=== PATIENT | male | born 1980 | race Caucasian/White ===

== ENCOUNTER 2016-10-26 19:14 | Emergency (ER) | payer SELFPAY ==
[~2016-10-26] VITALS: Ht 180.3 cm; Wt 80.0 kg
[~2016-10-26 19:14] MED LIST: BENT20TA PO; DICL75 PO; MMW SSP; PENI500T PO; ZOFR4TAB3 PO
[2016-10-26 19:17] VITALS: BP 130/85; PULSE 87; RESP 16; TEMP 98.2; O2SAT 98
--- NOTE | 2016-10-26 19:25 | PD ---
HPI Chief Complaint: Respiratory Symptoms Time Seen by Provider: 19:24 Travel History International Travel<30 days: No Contact w/Intl Traveler<30days: No Traveled to known affect area: No History of Present Illness HPI 36-year-old male presents to emergency Department with 3 day history of worsening shortness of breath and pleuritic chest pain in the left anterior lower thoracic region. 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 Patient states she's had increasing pleuritic pain and fever for the past 3 days. Patient denies headache, sore throat, ear pain, or abdominal complaints. Patient has no medications to treat his asthma. Patient states the pain is a 6/10 and worse with inspiration or cough. He has no known drug allergies. PFSH Past Medical History Asthma: Yes Respiratory: Yes (ASTHMA/L SIDE LOBECTOMY) Past Surgical History Thoracic Surgery: Yes (LT LOBECTOMY) Social History Alcohol Use: Yes (OCC) Tobacco Use: Yes (/2 PPD) Substance Use: No Allergies-Medications (Allergen,Severity, Reaction): Coded Allergies: No Known Allergies (Unverified , 10/26/16) Reported Meds & Prescriptions Reported Meds & Active Scripts Active Reported Olanzapine 5 Mg Tab 5 Mg PO HS Review of Systems General / Constitutional: Positive: Fever, Chills Eyes: No: Visual changes HENT: No: Headaches Cardiovascular: No: Chest Pain or Discomfort Respiratory: Positive: Cough, Shortness of Breath, Wheezing, Pleuritic Pain, No: Sneezing, Orthopnea, Hemoptysis Gastrointestinal: No: Nausea, Vomiting, Diarrhea, Abdominal Pain Genitourinary: No: Dysuria Musculoskeletal: No: Pain Skin: No Rash Neurologic: No: Weakness Psychiatric: No: Depression Endocrine: No: Polydipsia Hematologic/Lymphatic: No: Easy Bruising Physical Exam Narrative GENERAL: Patient appears in moderate distress SKIN: Warm and dry. Normal color. Normal turgor. HEAD: Atraumatic. Normocephalic. EYES: Pupils equal and round. No scleral icterus. No injection or drainage. ENT: No nasal bleeding or discharge. Mucous membranes pink and moist. TMs are clear bilaterally pharynx is normal. Airway is patent. NECK: Trachea midline. No JVD. Neck is supple and nontender. CARDIOVASCULAR: Regular rate and rhythm. No murmurs gallops or rubs. No crackles appreciated. RESPIRATORY: No accessory muscle use. No significant wheezing appreciated. The patient is unable to take deep breaths. Breath sounds equal bilaterally. GASTROINTESTINAL: Abdomen soft, non-tender, nondistended. Hepatic and splenic margins not palpable. MUSCULOSKELETAL: Extremities without clubbing, cyanosis, or edema. No obvious deformities. NEUROLOGICAL: Awake and alert. No obvious cranial nerve deficits. Motor grossly within normal limits. Five out of 5 muscle strength in the arms and legs. Normal speech. PSYCHIATRIC: Appropriate mood and affect; insight and judgment normal. Data Data Last Documented VS Vital Signs Date Time Temp Pulse Resp B/P Pulse Ox O2 Delivery O2 Flow Rate FiO2 10/26/16 20:00 85 18 96 Room Air 10/26/16: 98.2 130/85 Orders Complete Blood Count With Diff (10/26/16 19:29) Comprehensive Metabolic Panel (10/26/16:29) Act Partial Throm Time (Ptt) (10/26/16:) Prothrombin Time / Inr (Pt) (10/26/16:29) Magnesium (Mg) (10/26/16 19:29) Influenzae A/B Antigen (10/26/16 19:29) Iv Access Insert/Monitor (10/26/16:29) Electrocardiogram (10/26/16:29) Ecg Monitoring (10/26/16:29) Oximetry (10/26/16:29) Oxygen Administration (10/26/16 19:29) Chest, Pa & Lat (10/26/16 19:29) Sodium Chloride 0.9% Flush (Ns Flush) (10/26/16 19:30) Methylprednisolone So Succ Inj (Solumedr (10/26/16 19:30) Albuterol-Ipratropium Neb (Duoneb Neb) (10/26/16 19:30) Ckmb (Isoenzyme) Profile (10/26/16 19:29) Troponin I (10/26/16:29) Morphine Inj (Morphine Inj) (10/26/16 19:30) Sodium Chlorid 0.9% 500 Ml Inj (Ns 500 M (10/26/16 19:30) CKMB (10/26/16 20:10) CKMB% (10/26/16 20:10) Azithromycin (Zithromax) (10/26/16 21:15) Labs Laboratory Tests Test 10/26/16 20:10 White Blood Count 13.3 TH/MM3 Red Blood Count 4.80 MIL/MM3 Hemoglobin 14.3 GM/DL Hematocrit 42.9 % Mean Corpuscular Volume 89.3 FL Mean Corpuscular Hemoglobin 29.8 PG Mean Corpuscular Hemoglobin 33.3 % Concent Red Cell Distribution Width 14.6 % Platelet Count 303 TH/MM3 Mean Platelet Volume 7.8 FL Neutrophils (%) (Auto) 47.1 % Lymphocytes (%) (Auto) 37.9 % Monocytes (%) (Auto) 12.1 % Eosinophils (%) (Auto) 2.0 % Basophils (%) (Auto) 0.9 % Neutrophils # (Auto) 6.3 TH/MM3 Lymphocytes # (Auto) 5.1 TH/MM3 Monocytes # (Auto) 1.6 TH/MM3 Eosinophils # (Auto) 0.3 TH/MM3 Basophils # (Auto) 0.1 TH/MM3 CBC Comment DIFF FINAL Differential Comment Prothrombin Time 10.4 SEC Prothromb Time International 0.9 RATIO Ratio Activated Partial 23.7 SEC Thromboplast Time Sodium Level 141 MEQ/L Potassium Level 4.2 MEQ/L Chloride Level 109 MEQ/L Carbon Dioxide Level 25.1 MEQ/L Anion Gap 7 MEQ/L Blood Urea Nitrogen 22 MG/DL Creatinine 0.82 MG/DL Estimat Glomerular Filtration 105 ML/MIN Rate Random Glucose 86 MG/DL Calcium Level 8.5 MG/DL Magnesium Level 2.2 MG/DL Total Bilirubin 0.5 MG/DL Aspartate Amino Transf 45 U/L (AST/SGOT) Alanine Aminotransferase 50 U/L (ALT/SGPT) Alkaline Phosphatase 79 U/L Total Creatine Kinase 107 U/L Troponin I LESS THAN 0.02 NG/ML Total Protein 7.2 GM/DL Albumin 3.4 GM/DL [facility] Medical Decision Making Medical Screen Exam Complete: Yes Emergency Medical Condition: Yes Differential Diagnosis Pleuritic pain. Pericarditis. Pneumonia. Asthmatic flare. Narrative Course Patient is medically stable at time of exam. EKG is ordered. Labs ordered including CBC, CMP, cardiac profile. IV access is obtained patient is given Solu-Medrol 125 mg IV, as well as morphine 4 mg IV. Patient is given a normal saline bolus of 500 mL's. DuoNeb every 15 minutes 3 is ordered. Rapid influenza is ordered. Chest x-ray PA and lateral is ordered. Patient is discussed with Dr. Watkins. Chest x-ray shows no acute process per radiologist. Rapid influenza is negative. Labs are unremarkable. EKG is unremarkable as well. Patient feels improved after the above treatment. Patient is given azithromycin 500 mg by mouth. Patient is felt stable to be discharged home. Patient is continued on azithromycin Dosepak as prescribed. Patient is given albuterol metered-dose inhaler 2 puffs every 4-6 hours when necessary wheeze or shortness of breath. Patient is given prednisone 20 mg twice a day 5 days. Patient is given a Robitussin-AC 1-2 teaspoons every 6 hours when necessary cough. 120 mL. Patient is encouraged to quit smoking as soon as possible. Patient follow-up local primary care physician as needed. Patient can return to emergency department if symptoms worsen. Diagnosis Primary Impression: Acute wheezy bronchitis Additional Impression: Asthma with acute exacerbation in adult Referrals: [facility] Patient Instructions: Acute Bronchitis (ED), General Instructions, Wheezing (ED ) Additional Instructions: Patient is given azithromycin 500 mg by mouth. Patient is felt stable to be discharged home. Patient is continued on azithromycin Dosepak as prescribed. Patient is given albuterol metered-dose inhaler 2 puffs every 4-6 hours when necessary wheeze or shortness of breath. Patient is given prednisone 20 mg twice a day 5 days. Patient is given a Robitussin-AC 1-2 teaspoons every 6 hours when necessary cough. 120 mL. Patient is encouraged to quit smoking as soon as possible. Patient follow-up local primary care physician as needed. Patient can return to emergency department if symptoms worsen. Med/Other Pt SpecificInfo: Prescription(s) given Scripts Prednisone 20 Mg Tab20 Mg PO BID #10 TAB Prov:Ward Watkins MD 10/26/16 Guaifenesin-Codeine (Codeine/Guaifenesin 100-10 mg/5Ml)1 Delaney Sol10 Ml PO Q4-6H #120 ML Prov:Ward Watkins MD 10/26/16 Albuterol 18 GM Inh (Ventolin Hfa 18 GM Inh)90 Mcg/Act Aer2 Puff INH Q4-6H PRN ( SHORTNESS OF BREATH) #1 INHALER Prov:Ward Watkins MD 10/26/16 Azithromycin 250 Mg [id number] Mg PO DIRECTED #6 TAB Take 2 tabs (500 mg) on day 1 then 1 tab daily x 4 days. Prov:Ward Watkins MD 10/26/16 Disposition: 01 DISCHARGE HOME Condition: Stable Vincent Jarrell Oct 26, 2016 19:25
[2016-10-26] MEDS ORDERED: MORPHINE SULFATE 4 MG/ML INJ IV PUSH ONE (19:30)
[2016-10-26] MEDS ORDERED: methylPREDNISolone SOD SUCC 125 MG/2 ML VIAL IVP ONE (19:30)
[2016-10-26] MEDS ORDERED: SODIUM CHLORID 0.9% 500 ML INJ 500 ML IV ONE (19:30)
[2016-10-26] MEDS ORDERED: SODIUM CHLORIDE 0.9% FLUSH 5 ML FLUSH IVF PRN (19:30)
[2016-10-26] MEDS: RESP: ALBUTEROL 2.5 MG/IPRATROPIUM 0.5 MG NEB (SCH) INH (19:49)
--- NOTE | 2016-10-26 20:08 | RADRPT ---
EXAM DATE/TIME: 10/26/2016 19:46 [facility] COMPARISON: No previous studies available for comparison. INDICATIONS : Shortness of breath MEDICAL HISTORY : None. SURGICAL HISTORY : Lobectomy. ENCOUNTER: Initial ACUITY: 1 day PAIN SCORE: 0/10 LOCATION: chest FINDINGS: PA and lateral views of the chest demonstrate the lungs to be symmetrically aerated without evidence of mass, infiltrate or effusion. The cardiomediastinal contours are unremarkable. Osseous structure s are intact. CONCLUSION: No acute disease. Froylan Thomas MD on October 26, 2016 at 20:06 Board Certified Radiologist. This report was verified electronically.
[2016-10-26] MEDS ORDERED: OLAN5TAB PO (20:14)
[2016-10-26 20:27] LABS: AUTOMATED NEUTROPHIL # 6.3 TH/MM3 (1.8-7.7); BASOPHIL # 0.1 TH/MM3 (0-0.2); BASOPHIL % 0.9 % (0.0-2.0); EOSINOPHIL # 0.3 TH/MM3 (0-0.4); HEMATOCRIT 42.9 % (39.0-51.0); HEMO FLAGS DIFF FINAL; LYMPH % 37.9 % (9.0-44.0); LYMPHOCYTE # 5.1 TH/MM3 (1.0-4.8); MEAN CELL VOLUME 89.3 FL (80.0-100.0); MEAN CORPUSCULAR HEMOGLOBIN 29.8 PG (27.0-34.0); MEAN CORPUSCULAR HGB CONC 33.3 % (32.0-36.0); MONO % 12.1 % (0.0-8.0); NEUT % 47.1 % (16.0-70.0); PLATELET COUNT 303 TH/MM3 (150-450); RED CELL DISTRIBUTION WIDTH 14.6 % (11.6-17.2); WHITE BLOOD COUNT 13.3 TH/MM3 (4.0-11.0)
[2016-10-26 20:36] LABS: APTT (PATIENT) 23.7 SEC (24.3-30.1); INTERNATIONAL NORMALIZED RATIO 0.9 RATIO; PROTHROMBIN TIME - PATIENT 10.4 SEC (9.8-11.6)
[2016-10-26 20:55] LABS: ANION GAP 7 MEQ/L (5-15); AST (GOT) 45 U/L (15-37); BICARBONATE 25.1 MEQ/L (21.0-32.0); BLOOD UREA NITROGEN 22 MG/DL (7-18); CHLORIDE 109 MEQ/L (98-107); GLOMERULAR FILTRATION RATE 105 ML/MIN (>89); MAGNESIUM 2.2 MG/DL (1.5-2.5); POTASSIUM 4.2 MEQ/L (3.5-5.1); SODIUM (NA) 141 MEQ/L (136-145)
[2016-10-26 20:59] LABS: ALKALINE PHOSPHATASE 79 U/L (45-117); ALT (GPT) 50 U/L (12-78); CREATINE KINASE 107 U/L (39-308); TOTAL BILIRUBIN ADULT 0.5 MG/DL (0.2-1.0)
[2016-10-26] MEDS ORDERED: VENTAER INH (21:11)
[2016-10-26] MEDS ORDERED: PRED20 PO (21:11)
[2016-10-26] MEDS ORDERED: AZIT250T3 PO (21:11)
[2016-10-26] MEDS ORDERED: GUAI1SOL3 PO (21:11)
[2016-10-26 21:13] LABS: CKMB 1.6 NG/ML (0.5-3.6)
[2016-10-26] MEDS ORDERED: AZITHROMYCIN 250 MG TAB PO ONE (21:15)
[2016-10-26 21:41] VITALS: RESP 20
--- NOTE | 2016-10-26 21:47 | EKG ---
Date Performed: 10/26/2016 Time Performed: 20:32:03 PTAGE: 36 years EKG: Sinus rhythm POSSIBLE RIGHT ATRIAL ENLARGEMENT BORDERLINE ECG NO SIGNIFICANT CHANGE FROM PRIOR ELECTROCARDIOGRAM. PREVIOUS TRACING : 01/12/2002 18.30 DOCTOR: Ankur Smith Interpretating Date/Time 10/26/2016 21:45:23
== END 2016-10-26 21:56 | disposition home or self-care (01) ==
LOC: NEPE 19:14
DX: J20.9 Acute bronchitis, unspecified (principal); J45.901 Unspecified asthma with (acute) exacerbation; R50.9 Fever, unspecified; F17.210 Nicotine dependence, cigarettes, uncomplicated; R94.31 Abnormal electrocardiogram [ECG] [EKG]
CPT/HCPCS: 71020; 80053; 82550; 82552; 83735; 84484; 85025; 85610; 85730; 87804; 93005; 94640; 94664; 96361; 96374; 96375; 99285; J2270; J2930; J7040

== ENCOUNTER 2016-11-15 16:34 | Emergency (ER) | payer SELFPAY ==
[~2016-11-15] VITALS: Ht 180.3 cm; Wt 79.5 kg
[~2016-11-15 16:34] MED LIST changes: +AZIT250T3 PO; -BENT20TA PO; -DICL75 PO; +GUAI1SOL3 PO; -MMW SSP; +OLAN5TAB PO; -PENI500T PO; +PRED20 PO; +VENTAER INH; -ZOFR4TAB3 PO
[2016-11-15 16:35] VITALS: BP 134/74; PULSE 78; RESP 16; TEMP 98.2; O2SAT 98
--- NOTE | 2016-11-15 17:06 | PD ---
HPI . right eye FB Chief Complaint: Foreign Body Time Seen by Provider: 17:05 Travel History International Travel<30 days: No Contact w/Intl Traveler<30days: No Traveled to known affect area: No History of Present Illness HPI 36-year-old male here with complaints of right eye foreign body. Patient says he was cutting wood yesterday and although wearing protective glasses he feels that something may have slipped behind the glass and entered his right eye. He is now complaining of pain in his right eye. He has difficulty opening and tells me that he has some slight blurry vision. He has no other complaints. PFSH Past Medical History Asthma: Yes Diminished Hearing: No Respiratory: Yes (asthma) Immunizations Current: Yes Past Surgical History Thoracic Surgery: Yes (LT LOBECTOMY) Social History Alcohol Use: Yes (OCC) Tobacco Use: Yes (/2 PPD) Substance Use: No Allergies-Medications (Allergen,Severity, Reaction): Coded Allergies: No Known Allergies (Unverified , 11/15/16) Reported Meds & Prescriptions Reported Meds & Active Scripts Active Reported Olanzapine 5 Mg Tab 5 Mg PO HS Review of Systems General / Constitutional: No: Fever Eyes: Positive: Redness, Pain, No: Visual changes HENT: No: Headaches Cardiovascular: No: Chest Pain or Discomfort Respiratory: No: Shortness of Breath Gastrointestinal: No: Abdominal Pain Genitourinary: No: Dysuria Musculoskeletal: No: Pain Skin: No Rash Neurologic: No: Weakness Psychiatric: No: Depression Endocrine: No: Polydipsia Hematologic/Lymphatic: No: Easy Bruising Physical Exam Narrative GENERAL: AAO x 3, no acute distress, Well-nourished, well-developed patient. SKIN: Warm and dry. No visible rashes or bruising. HEAD: Normocephalic and atraumatic. EYES: No scleral icterus. No injection or drainage. difficult to assess right eye as patient will barely open it, left eye WNL ENT: No nasal drainage noted. Mucous membranes pink. Airway patent. NECK: Supple, trachea midline. No JVD. CARDIOVASCULAR: Regular rate and rhythm without murmurs, gallops, or rubs. RESPIRATORY: Breath sounds equal bilaterally. No accessory muscle use. No rhonchi or rales. GASTROINTESTINAL: Abdomen soft, non-tender, nondistended. EXTREMITIES: No cyanosis or edema. BACK: Nontender without obvious deformity. No CVA tenderness. PSYCH: AAO x 3, normal affect. Data Data Last Documented VS Vital Signs Date Time Temp Pulse Resp B/P Pulse Ox O2 Delivery O2 Flow Rate FiO2 11/15/16 16:35 98.2 78 16 134/74 98 Orders Proparacaine 0.5% Opth Soln (Alcaine 0.5 (11/15/16 17:15) MDM Medical Decision Making Medical Screen Exam Complete: Yes Emergency Medical Condition: Yes Medical Record Reviewed: Yes Differential Diagnosis fb eye, less likely conjunctivitis, less likely acute angle glaucoma Narrative Course 36-year-old male here with complaints of right eye foreign body. Patient says he was cutting wood yesterday and although wearing protective glasses he feels that something may have slipped behind the glass and entered his right eye. He is now complaining of pain in his right eye. He has difficulty opening and tells me that he has some slight blurry vision. He has no other complaints. Patient seen and examined. He does have some difficulty opening his right eye.He has no hx of glaucoma. Fluorescein will be performed to look for any evidence of foreign body. No acute abrasion, There was a small cystic structure on visual inspection once eye lid was everted. Discussed with patient. Advised ophthalmology follow-up. After local anesthesia was applied and I, patient was able to open his eye vision was normal. He did not have any blurry vision or any further pain. I explained that these small cyst can cause pain and discomfort. Patient verbalized understanding of instructions, questions were answered, and thanked me for their care. I advised them if their condition worsens, please return to the nearest emergency room for further care. Procedures Procedure Narrative Fluorescein eye staining procedure: proparacaine drops instilled into the right eye Local anesthesia was accomplished. the eye was inspected for any type of obvious foreign body eye lid was everted: there was a small cyst like structure in the eyelid once everted, I tried to remove and it remained in place fluorescein stain was applied to look for corneal abrasion: no acute abrasion Diagnosis Primary Impression: Cyst, eyelid Qualified Code: H02.823 - Cyst, eyelid, right Referrals: [facility] Patient Instructions: General Instructions Additional Instructions: Please follow-up with an freight brake operator if the problem persists. As we discussed, there was no foreign body in your eye. There was a small cyst but will likely rupture on its own. You can use tylenol and motrin as needed for pain. Disposition: 01 DISCHARGE HOME Condition: Stable Shanice Rea Nov 15, 2016 17:06
[2016-11-15] MEDS ORDERED: OLAN5TAB PO (17:07)
[2016-11-15] MEDS ORDERED: PROPARACAINE HCL 0.5% OPHT SOLN 15 ML BTL EACH EYE ONE (17:15)
== END 2016-11-15 17:52 | disposition home or self-care (01) ==
LOC: NEPK 16:34
DX: H02.823 Cysts of right eye, unspecified eyelid (principal)
CPT/HCPCS: 99283